=== PATIENT | male | born 1945 | race Caucasian/White ===

== ENCOUNTER 2016-10-04 14:07 | Emergency (ER) | payer OTHER ==
[~2016-10-04] VITALS: Ht 180.3 cm; Wt 79.4 kg
[2016-10-04] MEDS ORDERED: LISINOPRIL10 MG PO (14:31)
[2016-10-04] MEDS ORDERED: DELTASONE20 MG PO (14:49)
[2016-10-04] MEDS ORDERED: PEPCID AC20 MG PO (14:49)
[2016-10-04] MEDS ORDERED: BENADRYL25 MG PO (14:49)
[2016-10-04 15:05] VITALS: BP 157/93
[2016-10-04] MEDS ORDERED: HYDROCHLOROTH12.5 M1 PO (15:05)
== END 2016-10-04 15:41 | disposition home or self-care (01) ==
LOC: ER 14:07
DX: T78.3XXA Angioneurotic edema, initial encounter (principal); I10 Essential (primary) hypertension; Z96.641 Presence of right artificial hip joint; Z88.8 Allergy status to other drugs, medicaments and biological substances